=== PATIENT | female | born 1940 | race Caucasian/White ===

== ENCOUNTER → 2018-03-20 | Outpatient (CLI) | payer MEDICARE | LOC: MHCPAIN 13:13 | DX: G89.29 Other chronic pain (principal); M47.817 Spondylosis without myelopathy or radiculopathy, lumbosacral region; M54.16 Radiculopathy, lumbar region; M53.3 Sacrococcygeal disorders, not elsewhere classified; M96.1 Postlaminectomy syndrome, not elsewhere classified | CPT/HCPCS: G0463 ==

== ENCOUNTER → 2018-04-01 | Outpatient (CLI) | payer MEDICARE | LOC: MHCPAIN 10:39 | DX: M47.817 Spondylosis without myelopathy or radiculopathy, lumbosacral region (principal); M54.16 Radiculopathy, lumbar region | CPT/HCPCS: J1100; Q9967 ==

== ENCOUNTER → 2018-04-17 | Outpatient (CLI) | payer MEDICARE | LOC: MHCPAIN 13:00 | DX: G89.29 Other chronic pain (principal); M47.817 Spondylosis without myelopathy or radiculopathy, lumbosacral region; M54.16 Radiculopathy, lumbar region; M53.3 Sacrococcygeal disorders, not elsewhere classified; M96.1 Postlaminectomy syndrome, not elsewhere classified | CPT/HCPCS: G0463 ==

== ENCOUNTER → 2018-04-25 | Outpatient (CLI) | payer MEDICARE | LOC: MC.RAD 14:24 | DX: Z12.31 Encounter for screening mammogram for malignant neoplasm of breast (principal) ==

== ENCOUNTER 2019-05-23 14:30 | Outpatient (RCR) | payer MEDICARE | END 2019-06-26 15:00 | disposition home or self-care (01) | LOC: WSPT 14:30 | DX: R29.898 Other symptoms and signs involving the musculoskeletal system (principal) ==

== ENCOUNTER → 2019-06-16 | Outpatient (CLI) | payer MEDICARE | LOC: COL.RAD 13:52 | DX: M54.16 Radiculopathy, lumbar region (principal); M43.16 Spondylolisthesis, lumbar region ==

== ENCOUNTER → 2019-10-16 | Outpatient (CLI) | payer MEDICARE | LOC: COL.LAB 17:21 → ZCOL.LAB 17:21 | DX: Z01.818 Encounter for other preprocedural examination (principal); M43.16 Spondylolisthesis, lumbar region; M48.062 Spinal stenosis, lumbar region with neurogenic claudication; M47.26 Other spondylosis with radiculopathy, lumbar region; M51.16 Intervertebral disc disorders with radiculopathy, lumbar region ==

== ENCOUNTER → 2019-10-17 | Outpatient (CLI) | payer MEDICARE | LOC: COL.LAB 08:40 | DX: Z01.818 Encounter for other preprocedural examination (principal); M43.16 Spondylolisthesis, lumbar region; M48.062 Spinal stenosis, lumbar region with neurogenic claudication; M47.26 Other spondylosis with radiculopathy, lumbar region; M51.16 Intervertebral disc disorders with radiculopathy, lumbar region; Z20.828 Contact with and (suspected) exposure to other viral communicable diseases ==

== ENCOUNTER → 2020-01-14 | Outpatient (CLI) | payer MEDICARE | LOC: COL.LAB 13:21 → COL.RAD 13:34 | DX: M43.16 Spondylolisthesis, lumbar region (principal); M47.26 Other spondylosis with radiculopathy, lumbar region; Z98.1 Arthrodesis status ==

== ENCOUNTER → 2020-04-12 | Outpatient (CLI) | payer MEDICARE | LOC: COL.RAD 09:17 | DX: M43.16 Spondylolisthesis, lumbar region (principal); M48.062 Spinal stenosis, lumbar region with neurogenic claudication; M51.16 Intervertebral disc disorders with radiculopathy, lumbar region; M47.26 Other spondylosis with radiculopathy, lumbar region; Z98.1 Arthrodesis status ==

== ENCOUNTER → 2020-07-19 | Outpatient (CLI) | payer MEDICARE | LOC: COL.RAD 13:20 | DX: M43.16 Spondylolisthesis, lumbar region (principal); M48.062 Spinal stenosis, lumbar region with neurogenic claudication; M47.816 Spondylosis without myelopathy or radiculopathy, lumbar region; M51.36 Other intervertebral disc degeneration, lumbar region; M54.16 Radiculopathy, lumbar region; Z98.1 Arthrodesis status ==

== ENCOUNTER 2021-07-24 12:02 | Emergency (ER) | payer MEDICARE ==
[~2021-07-24] VITALS: Ht 154.9 cm; Wt 61.4 kg
[2021-07-24 12:23] VITALS: TEMP 97.8
[2021-07-24] MEDS ORDERED: TOPROL XL 25MG25 MG PO (12:44)
[2021-07-24] MEDS ORDERED: LIPITOR 10MG10 MG PO (12:45)
[2021-07-24] MEDS ORDERED: MAXZIDE-25MG TA1 TAB PO (12:46)
[2021-07-24] MEDS ORDERED: PACERONE100 MG PO (12:46)
[2021-07-24] MEDS ORDERED: XARELTO15 MG PO (12:46)
[2021-07-24] MEDS ORDERED: VITAMIN D31000 IU PO (12:47)
[2021-07-24] MEDS ORDERED: MULTI VITAMINS1 TAB PO (12:47)
[2021-07-24] MEDS ORDERED: EYE MEDICATION (12:48)
[2021-07-24 13:30] VITALS: BP 168/82; PULSE 70
== END 2021-07-24 13:30 | disposition home or self-care (01) ==
LOC: COL.ER 12:02
DX: S80.11XA Contusion of right lower leg, initial encounter (principal); X50.1XXA Overexertion from prolonged static or awkward postures, initial encounter; W18.30XA Fall on same level, unspecified, initial encounter; Y93.73 Activity, racquet and hand sports

== ENCOUNTER 2021-08-17 08:30 | Observation (INO) | payer MEDICARE ==
[~2021-08-17] VITALS: Ht 154.9 cm; Wt 62.6 kg
[~2021-08-17 08:30] MED LIST: LIPITOR 10MG10 MG PO; MAXZIDE-25MG TA1 TAB PO; MULTI VITAMINS1 TAB PO; OCUVITE1 TA1 PO; PACERONE100 MG PO; TOPROL XL 50MG50 MG PO; VITAMIN D31000 IU PO; XARELTO15 MG PO
[2021-08-17 08:48] LABS: BASO # 0.1 K/mm3 (0.0-0.2); BASO % 1.1 % (0.0-2.0); EOS # 0.1 K/mm3 (0.0-0.7); EOS % 1.5 % (0.0-4.0); GRAN # 5.9 K/mm3 (1.4-6.5); GRAN % 79.2 % (42.2-75.2); HEMOGLOBIN 15.2 g/dl (12.5-16.0); LYMPH % 12.9 % (20.0-51.0); MEAN CELL VOLUME 89 fl (80.0-100.0); MEAN CORPUSCULAR HEMOGLOBIN 30 pg (27-31); MEAN CORPUSCULAR HGB CONC 34 g/dl (33.0-37.0); MEAN PLATELET VOLUME 11.2 fl (7.4-10.4); MONO # 0.4 K/mm3 (0.1-0.6); PLATELET COUNT 251 K/mm3 (130-400); RED BLOOD COUNT 5.08 M/mm3 (4.10-5.30); REDCELL DISTRIBUTION WIDTH-CV 12.9 % (11.5-14.5)
[2021-08-17 09:02] LABS: ANION GAP 12 mmol/L (7-16); BLOOD UREA NITROGEN 22 mg/dL (10-20); CALCIUM 8.9 mg/dL (8.4-10.2); CARBON DIOXIDE 24 mmol/L (23-31); CHLORIDE 106 mmol/L (98-107); CREATININE, serum 0.96 mg/dL (0.57-1.11); GLUCOSE 118 mg/dL (70-99); POTASSIUM 3.7 mmol/L (3.5-4.5); SODIUM 142 mmol/L (136-145)
[2021-08-17 09:10] LABS: TROPONIN-I < 0.010 ng/mL (0.00-0.033)
[2021-08-17] MEDS ORDERED: ANTIVERT 25MG25 MG PO (13:59)
--- NOTE | 2021-08-17 14:12 | NUR ---
PT ARRIVES FROM ED @ 1330 VIA ER CART. PT IS ABLE TO TRANSFER HERSELF INTO BED. PT STATES THAT SHE CONTINUES TO BE VERY DIZZY WITH MOVEMENT, IS ENCOURAGED TO MOVE VERY SLOWLY. PT IS A&O X3, DAUGHTER IN LAW IS @ BEDSIDE. MED REC COMPLETED ET PT HAS VERIFIED ALLERGIES. NO DIET HAS BEEN ORDERED YET, PT HAS BEEN GIVEN ICE CHIPS. PT IS ASSISTED WITH 1 ASSIST ET GAITBELT TO BSC, URINE IS YELLOW ET CLEAR. IV INT TO RIGHT AC INTACT. PT DENIES NEEDS. CALL LIGHT WITHIN REACH. BED ALARM IS ON.
--- NOTE | 2021-08-17 14:57 | NUR ---
PT STATES THAT HER RECENT FALL OCCURRED WHILE SHE WAS PLAYING PICKLEBALL, SHE TRIPPED ET HIT HER LEGS ON THE GROUND ONLY. PT DOES HAVE A BRUISE ON HER RIGHT KNEE.
[2021-08-17 16:16] VITALS: BP 125/55; PULSE 63; TEMP 98
[2021-08-17 19:47] VITALS: BP 122/54; PULSE 59; TEMP 99.5
--- NOTE | 2021-08-17 20:30 | NUR ---
Initial shift assessment done- denies pain- states does have some vertigo when moves her head,, VSS, will call Jany REYES to see if she wants the antivert reordered, understands to call for assistance to get up- bed alarm on , Tele on, NSR 61/min, SCD,s on but pt states she cannot sleep with them- will remove. Refused melatonin for sleep.
[2021-08-18] VITALS (7 sets, daily range): BP systolic 105–136; BP diastolic 47–64; PULSE 66–75; TEMP 98–98.6
--- NOTE | 2021-08-18 05:15 | NUR ---
Quiet night- VSS, states continues to have vertigo when turning head, did take the antivert x1, states does not want another at this time. Did sleep fairly well.
[2021-08-18 06:12] LABS: BASO # 0.1 K/mm3 (0.0-0.2); BASO % 1.4 % (0.0-2.0); EOS # 0.1 K/mm3 (0.0-0.7); EOS % 2.4 % (0.0-4.0); GRAN # 3.3 K/mm3 (1.4-6.5); GRAN % 66.3 % (42.2-75.2); HEMATOCRIT 42.3 % (37.0-47.0); LYMPH # 1.1 K/mm3 (1.2-3.4); LYMPH % 21.6 % (20.0-51.0); MEAN CELL VOLUME 92 fl (80.0-100.0); MEAN CORPUSCULAR HEMOGLOBIN 30 pg (27-31); MEAN CORPUSCULAR HGB CONC 33 g/dl (33.0-37.0); MEAN PLATELET VOLUME 11.5 fl (7.4-10.4); MONO # 0.4 K/mm3 (0.1-0.6); MONO % 7.9 % (1.7-9.3); PLATELET COUNT 247 K/mm3 (130-400); REDCELL DISTRIBUTION WIDTH-CV 13.1 % (11.5-14.5)
[2021-08-18 06:21] LABS: CALCIUM 8.7 mg/dL (8.4-10.2); CHOLESTEROL RISK RATIO 3.7; CREATININE, serum 1.14 mg/dL (0.57-1.11)
--- NOTE | 2021-08-18 09:26 | NUR ---
Patient A&Ox4, 1x-Assist in the room. Patient does c/o dizziness upon sitting up and standing. When patient stood, she was noticably dizzy and appeared unsteady. PT is currently working w/ the patient, using a gait belt for ambulation. Patient walked from bed to bathroom, currently wishes to stay in bed vs. recliner. Patient grabbed onto door frame for assistance w/ balance. PT to bring the patient a walker to assist w/ ambulation.
--- NOTE | 2021-08-18 10:08 | NUR ---
Initial visit; Diving Judge had a good visit with Iliana and her daughter regarding Iliana's vertigo and her attempts to live with it. This last episode seemed worse according to Iliana. Diving Judge offered her God's blessings and will keep her in Diving Judge's prayers for healing.
--- NOTE | 2021-08-18 15:37 | NUR ---
composition siding worker met with patient to discuss discharge plan. Patient reports that she lives at home alone in [place]. She states that she is independent with her ADL's and does not utilize any DME to assist with mobility. Patient has no home oxygen needs. PCP is Dr. Elda Patricia and she uses [facility] for medication needs. Patient reports that she does have a DPOA-HC estbalished listing her son Mario ([phone]). Spoke with the patient about the recommendation of going home with either HH services or OP rehab. Patient states that she was already doing outpatient physical therapy at [place] but states that "now i can't drive" so she would like to be established with HH services. Patient is provided the [place] list of HH agencies and the patient chose [facility]. Patients referral information faxed to agency. Discharge plan: Home with HH
--- NOTE | 2021-08-18 18:41 | NUR ---
IV removed from the right AC, new one started in the left forearm, 22G.
--- NOTE | 2021-08-18 20:00 | NUR ---
Initial shift assessment done- denies pain, denies SOB, Tele on ,NSR 76/min. States she is much better tonight-can move around in the bed better than last night-still has some vertigo when moves but it is much better tonight- VSS
[2021-08-19 04:06] VITALS: BP 109/63; PULSE 71; TEMP 98
--- NOTE | 2021-08-19 05:30 | NUR ---
Quiet night- no requests ,VSS ,Hoping to go home today
[2021-08-19 06:13] LABS: CALCIUM 8.4 mg/dL (8.4-10.2); CREATININE, serum 0.85 mg/dL (0.57-1.11); POTASSIUM 3.7 mmol/L (3.5-4.5)
[2021-08-19 08:02] VITALS: BP 125/56; PULSE 69; TEMP 98
--- NOTE | 2021-08-19 08:40 | NUR ---
Patient laying in bed upon entering the room. Morning medications administered w/ the exception of aspirin and ocuvite. Patient refused both medications. Does not feel aspirin is necessary as she is on xarelto (education provided), and the ocuvite is too large for her to comfortable swollow. Patient appears and reports that she feels much better. She is A&Ox4, and a SBA in the room. Patient denies any dizziness, SOB, or pain. Call light is w/in reach and bed alarm is on for patient safety. Patient encouraged to call if any needs arise.
[2021-08-19] MEDS ORDERED: VALIUM 2MG T2 MG/TAB PO (10:01)
[2021-08-19 11:29] VITALS: BP 123/62; PULSE 70; TEMP 98.1
--- NOTE | 2021-08-19 13:08 | NUR ---
Patient discharged home. IV and telemetry removed by this RN. All education and instructions discussed w/ patient; Patient verbalized understanding and signed discharge paperwork. Patient denied any concerns at the time of discharge.
--- NOTE | 2021-08-19 14:39 | NUR ---
Patient to discharge home today. DESIRE spoke with patient about Home Health and she states she is not sure she will need it, but would like SW to send orders and have [facility] contact her. DESIRE contacted [facility] and faxed discharge orders. Patient needs assistance with ordering a front wheeled walker. SW faxed order and referral for FWW to [facility]. DESIRE provided contact information for [facility] to patient who advised she will have her son picking table worker the FWW. Discharge Plan: Home with [facility]
== END 2021-08-19 12:20 | disposition home health service (06) ==
LOC: COL.ER 08:30 → MEDICAL 12:22
PROVIDERS: Emergency Medicine; Physician Assistant
DX: R42 Dizziness and giddiness (principal); I48.91 Unspecified atrial fibrillation; I10 Essential (primary) hypertension; E78.5 Hyperlipidemia, unspecified; Z79.01 Long term (current) use of anticoagulants; Z79.899 Other long term (current) drug therapy; I08.0 Rheumatic disorders of both mitral and aortic valves
CPT/HCPCS: A9575; G0378; J1200; J2765; Q9967

== ENCOUNTER 2021-12-09 13:45 | Outpatient (RCR) | payer MEDICARE ==
[~2021-12-09 13:45] MED LIST changes: +ANTIVERT 25MG25 MG PO; +VALIUM 2MG T2 MG/TAB PO
== END 2021-12-14 | disposition home or self-care (01) ==
LOC: MKS.ESL.PT
DX: R42 Dizziness and giddiness (principal)

== ENCOUNTER → 2023-10-19 | Outpatient (CLI) | payer MEDICARE ==
[~2023-10-19] MED LIST changes: +Gadoterate 15 ML VIAL IV ONE
== END ==
LOC: COL.RAD 11:40
DX: M48.05 Spinal stenosis, thoracolumbar region (principal); M48.07 Spinal stenosis, lumbosacral region; M16.12 Unilateral primary osteoarthritis, left hip; M54.41 Lumbago with sciatica, right side; M54.42 Lumbago with sciatica, left side
CPT/HCPCS: A9575

== ENCOUNTER → 2024-01-16 | Outpatient (CLI) | payer MEDICARE ==
[~2024-01-16] MED LIST changes: -Gadoterate 15 ML VIAL IV ONE
== END ==
LOC: MHCPAIN 13:42
DX: M25.552 Pain in left hip (principal); M47.816 Spondylosis without myelopathy or radiculopathy, lumbar region; M48.061 Spinal stenosis, lumbar region without neurogenic claudication; M70.62 Trochanteric bursitis, left hip; G96.191 Perineural cyst; I48.91 Unspecified atrial fibrillation; Z79.01 Long term (current) use of anticoagulants
CPT/HCPCS: G0463